=== PATIENT | male | born 1950 ===

== ENCOUNTER → 2017-01-26 | Day surgery (SDC) | payer MEDICARE ==
--- NOTE | 2017-01-23 20:08 | Pre-op HX & Phy Repo 2 SIG ---
DATE OF ADMISSION: 01/26/2017 DATE OF SURGERY: January 26, 2017. PREOPERATIVE DIAGNOSIS: Macular pucker, right eye. BRIEF NOTE: This is a first [facility] admission for this patient, who is a very nice 66-year-old gentleman with progressive history of blurred vision in the right eye. He was found to have a dense epiretinal membrane. He is admitted for membrane peel. PAST OCULAR HISTORY: Remarkable for cataract surgery in the left eye. There was previous laser to a significant retinal tear supratemporally. This has been successful. PAST MEDICAL HISTORY: Remarkable for hypertension, prostate issues, high blood pressure and heart disease. He is a former drinker and smoker. PAST SURGICAL HISTORY: He had cataract surgery in the left eye in 02/2014 and a laser to the retinal tear in 01/2016. CURRENT MEDICATIONS: Include ranitidine, hydrochloride, losartan, hydrochlorothiazide, Verapamil, hydrocodone and acetaminophen for pain. ALLERGIES: He has no known allergies. PHYSICAL EXAMINATION: Best vision at the time of admission was 20/60- in the right eye and 20/25 in the left with pressures of 14. The anterior segment on the right showed 2 to 3+ nuclear sclerosis. The left showed a posterior chamber lens. Fundus exam of the right eye showed a moderately dense epiretinal membrane with retinal thickening, which had been noted on the CT studies. The retina was all attached. The left eye showed a previously treated horseshoe tear at the 2 o'clock position and laser scars to an area suspicious for lattice at the 5 o'clock position. The retina was detached. General physical examination will be done by Dr. Hester. ASSESSMENT: Dense epiretinal membrane, right eye. PLAN: The plan is to perform a pars plana vitrectomy with peeling of the epiretinal membrane of the right. The risks and benefits of surgery were gone over with the patient with potential infection, hemorrhage, glaucoma, remote possibility of loss of the eye. The risk of anesthesia was discussed. The patient understands and consents to surgery to be performed on Thursday morning. Wang Ag M.D. DR: JANNET JOB#: [id number] CC:
[~2017-01-26] VITALS: Ht 165.1 cm; Wt 75.7 kg
[2017-01-26] VITALS (10 sets, daily range): BP systolic 105–122; BP diastolic 69–79
[~2017-01-26] MED LIST: BSS 15ml BTL ONE; BSS 500ml btl ONE; Bupivacaine 0.75% 30ml vial INJ ONE; Cyclopentolate 1% Opth Sol ONE; Dexamethasone 4mg/ml vial ONE; DiphenhydrAMINE 50mg/ml Inj IVP PRN; EPINEPHrine 1mg/1ml Amp ONE; Flurbiprofen 0.03% Opth Sol 2.5ml ONE; Gatifloxacin Opth Solution 0.5% ONE; HYZAAR 100-251 EACH ORAL; Indocyanine Green 25mg Inj INJ ONE; Kenalog-10 5ml Inj ONE; Kenalog-40 1ml Vial ONE; LR 1000ml 1,000 ML IVLG SCH; LR 1000ml ONE; Lidocaine 2% MPF 5ml Vial INJ ONE; Maxitrol Opth Oint 3.5gm ONE; Midazolam 2mg/2ml Inj ONE; NORCO 10-325 T1 EACH ORAL; NS Irrig 1000ml ONE; Norco 5mg/325mg tab ORAL PRN; PROSCAR5 MG ORAL; Phenylephrine 2.5% Op Soln ONE; Povidone-Iodine 5% opth solution ONE; Pred Forte 1% Opth Susp 1ml RIGHT EYE SCH; Propofol 10mg/ml 20ml IV ONE; Sodium Hyaluronate 10 mg/ml 0.85ml ONE; Sterile Water Irrig 1000ml IRRIG ONE; TRAMADOL HCL50 MG ORAL; Tetracaine 0.5% Opth Soln ONE; Triamcinolone 40mg/ml PF Vial ONE; VERAPAMIL ER240 MG ORAL; ZANTAC150 MG ORAL; ZOLPIDEM TARTRAT5 MG ORAL; fentaNYL 100 mcg/2 mL IV ONE; fentaNYL 100 mcg/2 mL IV PRN
[2017-01-26] MEDS: Flurbiprofen 0.03% Opth Sol 2.5ml RIGHT EYE SCH ×3 (05:53→06:16)
[2017-01-26] MEDS: Phenylephrine 2.5% Op Soln RIGHT EYE SCH ×3 (05:53→06:16)
[2017-01-26] MEDS: Cyclopentolate 1% Opth Sol RIGHT EYE SCH ×3 (05:53→06:16)
[2017-01-26] MEDS: Gatifloxacin Opth Solution 0.5% RIGHT EYE SCH ×3 (05:54→06:17)
[2017-01-26 06:33] LABS: BASOPHILS % (AUTO) 2.7 % (0.0-2.0); EOSINOPHILS % (AUTO) 4.7 % (0.0-3.0); LYMPHOCYTES % (AUTO) 29.6 % (20.0-45.0); MEAN CORPUSCULAR HEMOGLOBIN 30.6 PG (27.0-31.0); MEAN CORPUSCULAR HGB CONC 33.5 G/DL (32.0-36.0); MEAN CORPUSCULAR VOLUME 91 FL (80-99); MEAN PLATELET VOLUME 5.8 FL (6.5-10.1); MONOCYTES % (AUTO) 11.4 % (1.0-10.0); NEUTROPHILS % (AUTO) 51.5 % (45.0-75.0); PLATELET COUNT 260 K/UL (150-450); RED BLOOD COUNT 4.81 M/UL (4.70-6.10); RED CELL DISTRIBUTION WIDTH 12.6 % (11.6-14.8); WHITE BLOOD COUNT 8.1 K/UL (4.8-10.8)
--- NOTE | 2017-01-26 06:35 | Pre-Procedure Note/Attestation ---
Pre-Procedure Note/Attestation Complete Prior to Procedure Planned Procedure: right Procedure Narrative: PPV, membrane peel, possible laser R eye. Indications for Procedure Pre-Operative Diagnosis: Macular pucker R eye Attestation I attest that I discussed the nature of the procedure; its benefits; risks and complications; and alternatives (and the risks and benefits of such alternatives ), prior to the procedure, with the patient (or the patient's legal major account representative). I attest that, if there was a reasonable possibility of needing a blood transfusion, the patient (or the patient's legal major account representative) was given the [facility] standardized written summary, pursuant to the Justino Neeraj Blood Safety Act ([place] Health and Safety Code # 1645, as amended). I attest that I re-evaluated the patient just prior to the surgery and that there has been no change in the patient's H&P, except as documented below: SOL SETH Jan 26, 2017 06:35
[2017-01-26 06:45] LABS: ANION GAP 9 (5-15); CALCIUM 8.8 mg/dL (8.6-10.2); CARBON DIOXIDE 25 mEQ/L (20-30); CHLORIDE 104 mEQ/L (98-107); CREATININE 0.6 mg/dL (0.7-1.2); GLOMERULAR FILTRATION RATE > 60 mL/min (>60); HEMOLYSIS 8; POTASSIUM 3.6 mEQ/L (3.4-4.9); SODIUM 138 mEQ/L (135-145)
--- NOTE | 2017-01-26 07:35 | Anethesia Preoperative Eval ---
Anesthesia Pre-op PMH/ROS General Date of Evaluation: Jan 26, 2017 Time of Evaluation: 07:32 Anesthesiologist: Jer ASA Score: ASA 2 Mallampati Score Class I : Soft palate, uvula, fauces, pillars visible Class II: Soft palate, uvula, fauces visible Class III: Soft palate, base of uvula visible Class IV: Only hard plate visible Mallampati Classification: Class II Surgeon: Ancelmo Diagnosis: R eye retinopathy Surgical Procedure: R eye PPV Anesthesia History: none Family History: no anesthesia problems Allergies: Coded Allergies: No Known Allergies (Unverified , 01/21/17) Medications: see eMAR Past Medical History Cardiovascular: Reports: HTN, Denies: CAD, TN, arrhythmia, other, valve dz Pulmonary: Denies: COPD, LAKHWINDER, asthma, other Gastrointestinal/Genitourinary: Reports: GERD, Denies: CRI, ESRD, other Neurologic/Psychiatric: Reports: other - Chronic pain, Denies: CVA, TIA, dementia, depression/anxiety Endocrine: Denies: DM, hypothyroidism, other, steroids HEENT: Reports: cataract (L) - s/p Sx, Denies: MARY'S IGLOO (L), MARY'S IGLOO (R), cataract (R), glaucoma, other Hematology/Immune: Denies: DVT, anemia, bleeding disorder, other Musculoskeletal/Integumentary: Denies: DDD, DJD, OA, RA, edema, other PMH Narrative: as above PSxH Narrative: L eye cataract Anesthesia Pre-op Phys. Exam Physician Exam Last Vital Signs Date Time Temp Pulse Resp B/P Pulse Ox O2 Delivery O2 Flow Rate FiO2 01/26/17 05:55 97.8 56 18 110/72 100 Room Air Constitutional: NAD Neurologic: CN 2-12 intact Cardiovascular: RRR, no M/R/G Respiratory: CTA Gastrointestinal: S/NT/ND Airway Exam Mallampati Score: Class II MO: full Neck: stiff ROM: limited Teeth: missing Dentures: no lower, no upper Anesthesia Pre-op A/P Labs Hematology Test 01/26/17 05:40 White Blood Count 8.1 K/UL (4.8-10.8) Red Blood Count 4.81 M/UL (4.70-6.10) Hemoglobin 14.7 G/DL (14.2-18.0) Hematocrit 43.9 % (42.0-52.0) Mean Corpuscular Volume 91 FL (80-99) Mean Corpuscular Hemoglobin 30.6 PG (27.0-31.0) Mean Corpuscular Hemoglobin Concent 33.5 G/DL (32.0-36.0) Red Cell Distribution Width 12.6 % (11.6-14.8) Platelet Count 260 K/UL (150-450) Mean Platelet Volume 5.8 FL (6.5-10.1) L Neutrophils (%) (Auto) 51.5 % (45.0-75.0) Lymphocytes (%) (Auto) 29.6 % (20.0-45.0) Monocytes (%) (Auto) 11.4 % (1.0-10.0) H Eosinophils (%) (Auto) 4.7 % (0.0-3.0) H Basophils (%) (Auto) 2.7 % (0.0-2.0) H Chemistry Test 01/26/17 06:30 Sodium Level 138 mEQ/L (135-145) Potassium Level 3.6 mEQ/L (3.4-4.9) Chloride Level 104 mEQ/L (98-107) Carbon Dioxide Level 25 mEQ/L (20-30) Anion Gap 9 (5-15) Blood Urea Nitrogen 15 mg/dL (7-23) Creatinine 0.6 mg/dL (0.7-1.2) L Estimat Glomerular Filtration Rate > 60 mL/min (>60) Glucose Level 103 mg/dL (74-106) Calcium Level 8.8 mg/dL (8.6-10.2) Studies Pre-op Studies: EKG - NSR Risk Assessment & Plan Assessment: ASA 2 Plan: MAC with retrobulbar block Status Change Before Surgery: No Pre-Antibiotics Drug: none ANDERS YUSUF M.D. Jan 26, 2017 07:35
--- NOTE | 2017-01-26 08:46 | Brief Operative Note ---
Immediate Post Operative Note Operative Note Chief Complaint: Blurred and distorted vision L eye Pre-op Diagnosis: Macular pucker R eye Procedure: PPV, Kenalog injection, ICG assisted membrane peel, R eye Post-op Diagnosis: same as pre-op Surgeon: candido Anesthesiologist: margaret Anesthesia: MAC Specimen: none Complications: none Condition: stable Estimated Blood Loss: none Drains: none Implant(s) used?: No SOL SETH Jan 26, 2017 08:46
--- NOTE | 2017-01-26 09:17 | Immediate Post-Op Evaluation ---
Immediate Post-Op Evalulation Immediate Post-Op Evalulation Procedure: R eye PPV membrane peel Date of Evaluation: Jan 26, 2017 Time of Evaluation: 08:36 IV Fluids: 300 Blood Products: none Estimated Blood Loss: min Urinary Output: none Blood Pressure Systolic: 116 Blood Pressure Diastolic: 62 Pulse Rate: 64 Respiratory Rate: 20 O2 Sat by Pulse Oximetry: 99 Temperature (Fahrenheit): 97.3 Pain Score (1-10): 2 Nausea: No Vomiting: No Complications none Patient Status: awake, patent, none Hydration Status: adequate ANDERS YUSUF M.D. Jan 26, 2017 09:17
--- NOTE | 2017-01-26 12:51 | 48 Hour Post Anesthesia Eval ---
Post Anesthesia Evaluation Procedure: R eye PPV membrane peel Date of Evaluation: Jan 26, 2017 Time of Evaluation: 12:50 Blood Pressure Systolic: 122 0: 74 Pulse Rate: 68 Respiratory Rate: 18 Temperature (Fahrenheit): 97.5 O2 Sat by Pulse Oximetry: 98 Airway: patent Nausea: No Vomiting: No Pain Intensity: 1 Hydration Status: adequate Cardiopulmonary Status: stable Mental Status/LOC: patient returned to baseline Follow-up Care/Observations: n/a Post-Anesthesia Complications: none Follow-up care needed: ready to discharge ANDERS YUSUF M.D. Jan 26, 2017 12:51
--- NOTE | 2017-01-26 16:08 | Pre-op HX & Phy Repo 2 SIG ---
DATE OF ADMISSION: 01/26/2017 REASON FOR EVALUATION: I was asked by Dr. Wang Ag to see this 66-year-old male, who is going for elective surgery on the right eye. The patient has a macular pucker in the right eye. Please see History and Physical by broadcast checker, Dr. Wang Ag. PAST MEDICAL HISTORY AND REVIEW OF SYSTEMS: Remarkable for history of hypertension, GERD, history of back pain, and BPH. The patient denies history of chest pain, palpitation, or heart attack. No history of shortness of breath or pulmonary problem. No asthma or bronchitis. Denies history of stroke or seizures. No diabetes. No liver problem. Denies history of anemia. No history of GI bleeding. PAST SURGICAL HISTORY: Left eye cataract. FAMILY HISTORY: Both parents are alive at the age of 95 and 94. Both parents have hypertension. ALLERGIES: Not known to medication or food. CURRENT MEDICATIONS: Etintidine, aspirin, Proscar, Hyzaar 100/12.5 mg, tramadol twice a day, verapamil 240 mg daily, and zolpidem 5 mg at bedtime. HABITS: The patient smoked in the past for about 20 years and stopped in 1995. Occasional alcohol. No street drugs. PHYSICAL EXAMINATION: GENERAL: Alert, well-developed, well-nourished male in his 60s. VITAL SIGNS: Blood pressure 110/72, temperature 97.8 degrees, pulse 56 and regular, respirations 18, and O2 saturation 100%. SKIN: Dry. No cyanosis. No rashes. No diaphoresis. LYMPHATIC: Lymph nodes not enlarged. HEENT: Head, normocephalic. Ears, clear. Nose, clear. No discharge. Eyes, full description per Dr. Wang Ag. Mouth, clear and moist. No dentures. NECK: No jugular vein distention. Carotids artery +2. Trachea midline. CHEST: No deformity or asymmetry. LUNGS: Clear. No rales or rhonchi. No wheezing. HEART: Sinus bradycardia. No murmur. No S3 and S4. ABDOMEN: Soft and benign. Liver and spleen are not enlarged. No rebound. EXTREMITIES: No edema. No calf tenderness. No deformities. GENITOURINARY: History of benign prostatic hypertrophy. No CVA tenderness. NERVOUS SYSTEM: No tremor. No nystagmus. No asymmetry. LABORATORY AND DIAGNOSTIC DATA: Sinus bradycardia, otherwise, normal ECG. Laboratory within normal limits. The patient did not eat or drink from 7 p.m. yesterday. IMPRESSION: 1. Macular pucker, right eye. 2. Hypertension, controlled. 3. Benign prostatic hyperplasia. 4. Gastroesophageal reflux disease 5. Sinus bradycardia. PLAN: Pars plana vitrectomy 23 G and membrane peeling, right eye, per Dr. Wang Ag. CONCLUSION: The patient has had bradycardia, most likely secondary to verapamil. Laboratory normal. The patient's vital signs stable. The patient's condition optimized for surgery. Thank you very much, Dr. Ag, for privilege to participate in presurgical care of this interesting patient. Yg Hester M.D. DR: DAMIAN JOB#: [id number] CC:
--- NOTE | 2017-01-26 18:28 | Operative Note - Dictated ---
DATE OF OPERATION: 01/26/2017 PREOPERATIVE DIAGNOSIS: Macular pucker, right eye. POSTOPERATIVE DIAGNOSIS: Macular pucker, right eye. PROCEDURES: 1. Pars plana vitrectomy. 2. ICG assisted membrane peel. 3. Kenalog injection, right eye. SURGEON: Wang Ag M.D. ETHANOL OPERATOR: None. ANESTHESIA: Local sedation. ANESTHESIOLOGIST: Bhavin Randle M.D. JUSTIFICATION FOR SURGERY: This 66-year-old man, developed a blurring and distorted vision in the right eye and was found to have an epiretinal membrane. BRIEF NOTE: The patient was brought to the operative room and placed on OR table in supine position. After a time-out was performed and agreed upon by the staff and initial monitoring secured by Dr. Randle, retrobulbar and Van Lint blocks were given in the standard way. When the blocks taken effect, he was prepped and draped in the normal manner. A lid speculum was inserted to the right eye. Using a 23-gauge trocar system, cannulas were placed in all except infranasal quadrant. Infusion secured inferotemporally. Vitrectomy was begun posterior to the lens taking care to avoid contact. A central core vitrectomy was done followed by peripheral vitrectomy leaving a small vitreous skirt. Kenalog was used to aid in visualization of the vitreous. A posterior viewing lens was then inserted and a single drop of ICG solution diluted in D5 was placed on the retina in the papillomacular bundle region for approximately 30 seconds. This was evacuated from the eye. Using the posterior viewing lens and intra-ocular forceps, the membrane was engaged and gently peeled from the surface of the retina. Underlying areas of ILM were also removed leaving a smooth macular contour. The periphery was then checked for tears or detachments, and none were seen. Debris was removed with a vitreous cutter. Kenalog 1 mg was then injected and the cannulas were removed. The wounds noted to be self-sealing. Subconjunctival Decadron and gentamicin were then injected and Maxitrol and atropine ointments were instilled. The eye was patched and shielded, and the patient was taken to recovery in excellent condition. No complications. Wang Ag M.D. DR: SURYA JOB#: [id number] CC:
--- NOTE | 2017-01-30 15:51 | Cardiology Report ---
APPROVED REPORT EKG Measurement Heart [id number] Sinus bradycardia Otherwise normal ECG
== END | disposition home or self-care (01) ==
LOC: SUR 05:12
DX: H35.371 Puckering of macula, right eye (principal); I10 Essential (primary) hypertension; K21.9 Gastro-esophageal reflux disease without esophagitis; N40.0 Benign prostatic hyperplasia without lower urinary tract symptoms; R00.1 Bradycardia, unspecified; G89.29 Other chronic pain; Z87.891 Personal history of nicotine dependence; Z79.82 Long term (current) use of aspirin; Z79.891 Long term (current) use of opiate analgesic; Z79.899 Other long term (current) drug therapy
CPT/HCPCS: 36415; 67042; 80048; 85025; 93005; J0171; J1100; J2250; J2704; J3010; J3301; J3470; J3490; J7120; 94003; 94150; J3300